=== PATIENT | male | born 1985 | race Caucasian/White ===

== ENCOUNTER 2019-10-26 21:27 | Emergency (ER) | payer OTHER ==
[~2019-10-26] VITALS: Ht 180.3 cm; Wt 131.5 kg
[~2019-10-26 21:27] MED LIST: NAPROSYN500 MG PO
[2019-10-26 22:01] LABS: INFLUENZA A ANTIGEN Positive (Negative); INFLUENZA B ANTIGEN Negative (Negative)
[2019-10-26] MEDS ORDERED: PROMETHAZINE-C473 ML PO (22:46)
[2019-10-26] MEDS ORDERED: TAMIFLU75 MG PO (22:46)
[2019-10-26] MEDS ORDERED: MEDROLDOSEPACK PO (22:46)
[2019-10-26] MEDS ORDERED: MUCINEX DM ER1 EACH PO (22:46)
[2019-10-26 22:54] VITALS: BP 132/79
== END 2019-10-26 22:54 | disposition home or self-care (01) ==
LOC: M.ERS 21:27
PROVIDERS: Personal Emergency Response Attendant
DX: J10.1 Influenza due to other identified influenza virus with other respiratory manifestations (principal); Z90.49 Acquired absence of other specified parts of digestive tract